=== PATIENT | male | born 1990 | race Caucasian/White ===

== ENCOUNTER → 2018-10-07 | Outpatient (CLI) | payer MEDICARE, OTHER ==
[~2018-10-07] MED LIST: AMOCLA875 PO; CEPH500 PO; CITA20; CYCL10 PO; FEXPSEER; HYDR1TAB94 PO; KETO10 PO; MECL25 PO; METPHE27ER; OMEP20ER; OTC COLD MEDS; PROACE100 PO; SUCR1 PO
== END | disposition home or self-care (01) ==
LOC: LAB SHORT 16:11 → LAB 16:11
DX: H92.02 Otalgia, left ear (principal)
CPT/HCPCS: 87070; 87077; 87147; 87186; 87205

== ENCOUNTER → 2019-11-01 | Outpatient (CLI) | payer MEDICARE, OTHER | END | disposition home or self-care (01) | LOC: LAB SHORT 19:39 → LAB 19:39 | DX: H66.92 Otitis media, unspecified, left ear (principal) | CPT/HCPCS: 87070; 87205 ==